=== PATIENT | male | born 1990 | race African-American/Black ===

== ENCOUNTER 2021-04-18 16:29 | Emergency (ER) | payer OTHER, SELFPAY ==
--- NOTE | ~2021-04-18 | XR_ITS ---
EXAMINATION: XR wrist RT min 3V DATE: 04/18/2021 17:14 INDICATION: Right wrist laceration. TECHNIQUE: 4 views of right wrist were obtained. COMPARISON: None. FINDINGS: Bone alignment is normal. No fracture. Joint spaces are well maintained. There is a lacerat ion palmar to distal radius and ulna. There is a punctate density in the area of the laceration. IMPRESSION: 1. Laceration palmar to distal radius and ulna with punctate radiopaque foreign body in the area of t he laceration. Reviewed, dictated and finalized at location A. IMPRESSION: 1. Laceration palmar to distal radius and ulna with punctate radiopaque foreign body in the area of the laceration.
[2021-04-18 16:40] VITALS: BP 112/88; PULSE 91; RESP 18; TEMP 37.2; O2SAT 99
[2021-04-18] MEDS: TETANUS,DIPHTHERIA,AC PERTUSSIS ADULT (0.5 ML) BOOSTRIX IM (17:28)
--- NOTE | 2021-04-18 17:54 | ED.WOUNDLAC ---
HPI - Wound/Laceration General Chief Complaint: Wound/Laceration Stated Complaint: Laceration on right wrist Time Seen by Provider: 04/18/21 17:20 Source: patient and RN notes reviewed Mode of arrival: ambulatory Limitations: no limitations History of Present Illness HPI narrative: Patient presents today complaint of a laceration to his right forearm/wrist. This was sustained just prior to arrival when he was demolishing windshield of a car with a sledgehammer and cut his arm on the windshield glass. He is not up-to-date on his tetanus vaccine. Denies numbness or tingling. He has not tried any [id number] interventions prior to arrival. This injury occurred at home. Related Data Home Medications Medication Instructions Recorded Confirmed albuterol sulfate 2 puff INHALATION Q4H PRN 04/18/21 04/18/21 fluticasone furoate-vilanterol 1 inh INHALATION DAILY 04/18/21 04/18/21 [Breo Ellipta] Allergies Allergy/AdvReac Type Severity Reaction Status Date / Time METHYLPREDNISOLONE SOD SUCC AdvReac Unknown VOMITING Uncoded 04/18/21 16:48 Review of Systems Review of Systems: CONSTITUTIONAL: Denies body aches, fever, chills, or sweats. EYES: Denies visual changes, redness, or discharge. ENT: Denies rhinorrhea, congestion, sore throat, or otalgia. CARDIOVASCULAR: Denies chest pain, palpitations, or edema. RESPIRATORY: Denies cough or dyspnea. GASTROINTESTINAL: Denies abdominal pain, nausea, vomiting, or diarrhea. GENITOURINARY: Denies dysuria or hematuria. SKIN: Denies rash, itching. + Laceration to the right forearm MUSCULOSKELETAL: Denies back pain, joint pain, or myalgia. NEUROLOGIC: Denies headache, numbness, tingling, or weakness. PSYCH: Denies depression or anxiety. [facility] Past Medical History Medical History (Updated 04/18/21 @ 18:02 by Angelica Kaplan, PURLER, ) Asthma Comments At time of signature, I have reviewed and agree with nursing past medical, surgical, social and family history unless otherwise noted. Please see nursing chart for further information. There is no relevant family history pertinent to the presenting complaint Exam Narrative: GENERAL: Well-appearing, well-nourished, and in no acute distress. HEAD: Normocephalic, atraumatic. EYES: EOMI. No redness or drainage. Conjunctivae normal. ENT: Mucous membranes pink and moist. NECK: Normal AROM. CHEST: No respiratory distress. EXTREMITIES: 3.5 cm full-thickness linear laceration to the distal right forearm, volar aspect. Distal sensation intact. Capillary refill normal. Radial pulse normal. Full AROM of all fingers. Range of motion normal of the wrist. Color normal. SKIN: Warm, dry, no rash. Capillary refill normal. Normal skin turgor. NEURO: No focal deficits. Alert and oriented x3. Gait steady. PSYCH: Normal affect. No signs of depression or anxiety. Course Vital Signs Vital signs: Vital Signs Temperature 99.0 F 04/18/21 16:40 Pulse Rate 91 04/18/21 16:40 Respiratory Rate 18 04/18/21 16:40 Blood Pressure 112/88 04/18/21 16:40 Pulse Oximetry 99 04/18/21 16:40 Temperature 99.0 F 04/18/21 16:40 Pulse Rate 91 04/18/21 16:40 Respiratory Rate 18 04/18/21 16:40 Blood Pressure 112/88 04/18/21 16:40 Pulse Oximetry 99 04/18/21 16:40 Reviewed. Pt has been instructed to follow up with his PCP regarding his elevated blood pressure today. Procedures Laceration Laceration 1: Date: 04/18/21 Time: 17:55 Site: upper extremity Side (If applicable): right Size (cm): 3.5 Description: linear Depth: simple, single layer Local Anesthetic: lidocaine 1% and with epi Amount of anesthesia used (mL): 2 Pre-repair: wound explored and irrigated ====== Skin Level ====== Size (cm): 4-0 Number of sutures: 5 Technique: simple, interrupted ====== Subcutaneous Layer ====== ====== Muscle Layer ====== ======
== END 2021-04-18 18:05 | disposition home or self-care (01) ==
PROVIDERS: Emergency Provider Nurse Practitioner; PCP Pediatrics
DX: S61.511A Laceration without foreign body of right wrist, initial encounter (principal); W25.XXXA Contact with sharp glass, initial encounter; Z23 Encounter for immunization; J45.909 Unspecified asthma, uncomplicated
CPT/HCPCS: 12002; 73110; 90471; 90715; 99213; G0463

== ENCOUNTER 2024-03-06 16:37 | Emergency (ER) | payer OTHER, SELFPAY ==
[2024-03-06 16:51] VITALS: BP 156/77; PULSE 76; RESP 18; TEMP 36.8; O2SAT 99
[2024-03-06 17:02] VITALS: O2SAT 99
--- NOTE | 2024-03-06 17:07 | ED.ASTHMA ---
HPI - Asthma General Chief Complaint: Asthma Stated Complaint: Shortness of Breath Time Seen by Provider: 03/06/24 16:59 Source: patient and RN notes reviewed Mode of arrival: ambulatory Limitations: no limitations History of Present Illness HPI Narrative: Patient presents today complaining of an asthma exacerbation for the past week with complaints of difficulty taking a deep breath as well as a cough. He has been using his albuterol nebulizer treatments and inhaler but has run out of both. He has been using an [id number] Primatene mist inhaler. He is requesting refills for these as well as his Breo. He is also requesting some steroids. Denies any additional upper respiratory symptoms such as congestion, rhinorrhea, sore throat, fever. Patient does not currently have a PCP. Related Data Home Medications Medication Instructions Recorded Confirmed albuterol sulfate 90 mcg/actuation 2 puff inhalation Q4H PRN Cough 04/18/21 03/06/24 aerosol inhaler fluticasone furoate 100 1 inh inhalation DAILY 04/18/21 03/06/24 mcg-vilanterol 25 mcg/dose inhalation powder (Breo Ellipta) Allergies Allergy/AdvReac Type Severity Reaction Status Date / Time METHYLPREDNISOLONE SOD SUCC AdvReac Unknown VOMITING Uncoded 03/06/24 16:48 Review of Systems Review of Systems: CONSTITUTIONAL: Denies body aches, fever, chills, or sweats. EYES: Denies visual changes, redness, or discharge. ENT: Denies rhinorrhea, congestion, sore throat, or otalgia. CARDIOVASCULAR: Denies chest pain, palpitations, or edema. RESPIRATORY:+ cough, difficulty taking a deep breath GASTROINTESTINAL: Denies abdominal pain, nausea, vomiting, or diarrhea. GENITOURINARY: Denies dysuria or hematuria. SKIN: Denies rash, itching, or wounds. MUSCULOSKELETAL: Denies back pain, joint pain, or myalgia. NEUROLOGIC: Denies headache, numbness, tingling, or weakness. PSYCH: Denies depression or anxiety. [facility] Past Medical History Medical History Asthma Comments At time of signature, I have reviewed and agree with nursing past medical, surgical, social and family history unless otherwise noted. Please see nursing chart for further information. There is no relevant family history pertinent to the presenting complaint Exam Narrative: GENERAL: Well-appearing, well-nourished, and in no acute distress. HEAD: Normocephalic, atraumatic. EYES: EOMI. No redness or drainage. Conjunctivae normal. ENT: Mucous membranes pink and moist. NECK: Normal AROM. Supple. No lymphadenopathy. CHEST: No respiratory distress. Clear to auscultation. HEART: Regular rate and rhythm. No murmur appreciated. EXTREMITIES: Normal range of motion. No edema. SKIN: Warm, dry, no rash. Capillary refill normal. Normal skin turgor. NEURO: No focal deficits. Alert and oriented x3. Gait steady. PSYCH: Normal affect. No signs of depression or anxiety. Course Course Level of Care: Express Care Visit Vital Signs Vital signs: Vital Signs Temperature 98.3 F 03/06/24 16:51 Pulse Rate 76 03/06/24 16:51 Respiratory Rate 18 03/06/24 16:51 Blood Pressure 156/77 H 03/06/24 16:51 Pulse Oximetry 99 03/06/24 16:51 Oxygen Delivery Room Air 03/06/24 16:51 Temperature 98.3 F 03/06/24 16:51 Pulse Rate 76 03/06/24 16:51 Respiratory Rate 18 03/06/24 16:51 Blood Pressure 156/77 H 03/06/24 16:51 Pulse Oximetry 99 03/06/24 16:51 Oxygen Delivery Room Air 03/06/24 16:51 Reviewed MDM - Asthma MDM Narrative Medical decision making narrative: Patient's exam is normal at this time. Will refill medications and give a course of prednisone. Patient has been instructed to initiate care with a new PCP as subsequent refills will not continue to be provided at [facility]. Patient states, If I have to wait 3 months for a new appointment, I'm going to forget. We discussed setting an alert or appoin
== END 2024-03-06 17:20 | disposition home or self-care (01) ==
PROVIDERS: Emergency Provider Nurse Practitioner
DX: J45.901 Unspecified asthma with (acute) exacerbation (principal)
CPT/HCPCS: 99213; G0463